=== PATIENT | male | born 1950 | race Caucasian/White ===

== ENCOUNTER → 2017-02-19 | Outpatient (CLI) | payer MEDICARE ==
[~2017-02-19] MED LIST: TYLE500T
--- NOTE | 2017-02-20 11:43 | RSPPFT ---
DATE OF PROCEDURE: 02/19/17 COMMENTS: Spirometry with FVC of 3.5 predicted 4.4, FEV1 of 2.7 predicted 3.4. Post-bronchodilator FVC increases to 4.0. Airways resistance is increased. DLCO is 69% of predicted. Patient has some responsiveness to acutely inhaled bronchodilator. IMPRESSION: 1. Flow values and lung volumes are within the predicted range.
== END ==
LOC: HRSP 09:48
PROVIDERS: ATTEND Internal Medicine Pulmonary Disease
DX: R05 Cough (principal)
CPT/HCPCS: 94060; 94620; 94726; 94729